=== PATIENT | female | born 1990 | race Caucasian/White ===

== ENCOUNTER 2024-10-07 14:53 | Emergency (ER) | payer OTHER, SELFPAY ==
[2024-10-07 14:58] VITALS: BP 130/84; PULSE 105; RESP 18; TEMP 36.6; O2SAT 100; BMI 25.7
--- NOTE | 2024-10-07 15:11 | ED.GENADULT ---
HPI - General Adult General Chief complaint: Extremity Pain/Injury, Lower Stated complaint: Left knee pain Time Seen by Provider: 10/07/24 15:10 Related Data Home Medications ?Medication ?Instructions ?Recorded ?Confirmed duloxetine 30 mg capsule,delayed 30 mg PO BID 10/07/24 10/07/24 release (Cymbalta) Allergies Allergy/AdvReac Type Severity Reaction Status Date / Time No Known Drug Allergies Allergy Verified 10/07/24 15:03 Exam Const: Vital Signs, click to edit/add: Vital Signs - 24 hr 10/07/24 14:58 Temperature 97.8 F Pulse Rate [Right Pulse Oximeter] 105 H Respiratory Rate 18 Blood Pressure [Ri t Upper Arm] 130/84 Pulse Oximetry 100 Oxygen Delivery Me thod Room Air Course Vital Signs Vital signs: Initial Vital Signs Temperature 97.8 F 10/07/24 14:58 Temperature Source Temporal Artery Scan 10/07/24 14:58 Pulse Rate 105 H 10/07/24 14:58 Pulse Rhythm Regular 10/07/24 14:58 Pulse Strength 3+ Normal 10/07/24 14:58 Respiratory Rate 18 10/07/24 14:58 Blood Pressure 130/84 10/07/24 14:58 Blood Pressure Mean 99 10/07/24 14:58 Blood Pressure Position Sitting 10/07/24 14:58 Pulse Oximetry 100 10/07/24 14:58 Oxygen Delivery Method Room Air 10/07/24 14:58 Vital Signs Temperature 97.8 F 10/07/24 14:58 Pulse Rate 105 H 10/07/24 14:58 Respiratory Rate 18 10/07/24 14:58 Blood Pressure 130/84 10/07/24 14:58 Pulse Oximetry 100 10/07/24 14:58 Oxygen Delivery Method Room Air 10/07/24 14:58 Temperature 97.8 F 10/07/24 14:58 Pulse Rate 105 H 10/07/24 14:58 Respiratory Rate 18 10/07/24 14:58 Blood Pressure 130/84 10/07/24 14:58 Pulse Oximetry 100 10/07/24 14:58 Oxygen Delivery Method Room Air 10/07/24 14:58 Discharge Plan Discharge Prescriptions: No Action duloxetine [Cymbalta] 30 mg capsule,delayed release(DR/EC) 30 mg PO BID
--- NOTE | 2024-10-07 15:17 | CRLHL7_ITS ---
For Patients: As a result of the Cures Act, medical imaging exams and procedure reports are released immediately into your electronic medical record. You may view this report before your referring provider. If you have questions, please contact your health care provider. Indication: LT knee pain x 1 year, no known injury Technique: Three views of the left knee. Comparison: None Findings/Impression: No acute fracture or malalignment. No appreciable knee joint effusion. No degenerative or inflammatory arthropathy. No suspicious osseous lesions. The soft tissues are unremarkable. Dictated by Roberto Carlos Lawson MD @ 10/07/2024 3:48:23 PM (Electronically Signed)
[2024-10-07] MEDS: KETOROLAC 30 MG/ML inj IM (15:33)
--- NOTE | 2024-10-07 15:36 | ED.GENADULT ---
HPI - General Adult General Date Seen: 10/07/24 Chief complaint: Extremity Pain/Injury, Lower Stated complaint: Left knee pain Time Seen by Provider: 10/07/24 15:10 History of Present Illness HPI narrative: Patient is a 34-year-old woman here for evaluation of her left knee. She says she has had pain in her knee for about a year but it has just been getting worse and worse. Today she was at [place] in the [employer] pool and had trouble getting out because her knee was painful. She has not had any swelling or redness, denies any injury recently, she says when she was maybe 15 or 16 she was kicked by a cow but that is the only thing she can recall that has ever happened to her knee. She is status post gastric bypass, does not take nonsteroidals. Occasionally takes Tylenol but generally does not take anything for her knee. Related Data Home Medications ?Medication ?Instructions ?Recorded ?Confirmed duloxetine 30 mg capsule,delayed 30 mg PO BID 10/07/24 10/07/24 release (Cymbalta) Previous Rx's ?Medication ?Instructions ?Recorded oxycodone 5 mg tablet 5 mg PO Q6H PRN pain #6 tabs 10/07/24 Allergies Allergy/AdvReac Type Severity Reaction Status Date / Time No Known Drug Allergies Allergy Verified 10/07/24 15:03 [facility] Social History service: No Exam Narrative: Exam Narrative: Vital signs reviewed. Mild tachycardia is noted. Extremities: The knees are both normal in appearance, I do not feel significant effusion bilaterally. No significant tenderness to palpation. Range of motion is limited by pain. She is able to extend too close to 180? but can flex only to about 110?. Const: Vital Signs, click to edit/add: Vital Signs - 24 hr 10/07/24 14:58 Temperature 97.8 F Pulse Rate [Right Pulse Oximeter] 105 H Respiratory Rate 18 Blood Pressure [Ri ght Upper Arm] 130/84 Pulse Oximetry 100 Oxygen Delivery Me thod Room Air Documenting provider has reviewed patient's vital signs: yes Course Course ED Course: I obtained x-rays of the left knee, by my review these are negative. Radiology read is also negative. Discussed with her that this does not rule out the possibility of soft tissue injury such as perhaps a more chronic meniscal tear. In the absence of any acute injury, I doubt this is ligamentous, but I did recommend her getting an MRI as an outpatient. She lives in [place], she will call her primary doctor on Wednesday to arrange. She request stronger pain medication as she cannot take nonsteroidals. I have given her oxycodone, 6 tablets. Recommend Tylenol 1000 mg 3 times daily, ice liberally. We gave her a knee immobilizer here as well to help symptomatically. Should be seen at any time for severe or worsening pain, increased swelling, redness fevers or other changes. Vital Signs Vital signs: Initial Vital Signs Temperature 97.8 F 10/07/24 14:58 Temperature Source Temporal Artery Scan 10/07/24 14:58 Pulse Rate 105 H 10/07/24 14:58 Pulse Rhythm Regular 10/07/24 14:58 Pulse Strength 3+ Normal 10/07/24 14:58 Respiratory Rate 18 10/07/24 14:58 Blood Pressure 130/84 10/07/24 14:58 Blood Pressure Mean 99 10/07/24 14:58 Blood Pressure Position Sitting 10/07/24 14:58 Pulse Oximetry 100 10/07/24 14:58 Oxygen Delivery Method Room Air 10/07/24 14:58 Vital Signs Temperature 97.8 F 10/07/24 14:58 Pulse Rate 105 H 10/07/24 14:58 Respiratory Rate 18 10/07/24 14:58 Blood Pressure 130/84 10/07/24 14:58 Pulse Oximetry 100 10/07/24 14:58 Oxygen Delivery Method Room Air 10/07/24 14:58 Temperature 97.8 F 10/07/24 14:58 Pulse Rate 105 H 10/07/24 14:58 Respiratory Rate 18 10/07/24 14:58 Blood Pressure 130/84 10/07/24 14:58 Pulse Oximetry 100 10/07/24 14:58 Oxygen Delivery Method Room Air 10/07/24 14:58 Medications Administered Medications: Discontinued Medications Generic Name Dose Route Start Last Admin Trade Name Freq PRN Reason Stop Dose Admin Ketorolac Tromethamine 30 mg 10/07/24 15:17 10/07/24 15:33 Ketorolac 30 Mg/Ml Inj IM 10/07/24 15:18 30 mg ONCE ONE Administration Medical Decision Making Imaging Data Left knee x-ray: Attestation: I have reviewed the pertinent imaging results. Radiologist's impression: [address] [address] Diagnostic Imaging Report Patient: Fernanda Turcios MR#: [id number] : 1990 Acct:[id number] Loc: ED Service Date: 10/07/[address]: Ordering Physician: Agnieszka Schmidt M.D. Date of Service: 10/07/24 Procedure(s): XR knee LT 3V Accession Number(s): [id number] cc: Agnieszka Schmidt M.D.~ For Patients: As a result of the Cures Act, medical imaging exams and procedure reports are released immediately into your electronic medical record. You may view this report before your referring provider. If you have questions, please contact your health care provider. Indication: LT knee pain x 1 year, no known injury Technique: Three views of the left knee. Comparison: None Findings/Impression: No acute fracture or malalignment. No appreciable knee joint effusion. No degenerative or inflammatory arthropathy. No suspicious osseous lesions. The soft tissues are unremarkable. Dictated by Roberto Carlos Lawson MD @ 10/07/2024 3:48:23 PM Discharge Plan Discharge Clinical Impression: Chronic pain of left knee Patient Disposition: Home, Self-Care Condition: Stable Instructions: Knee Pain (ED) Additional Instructions: Your x-rays today are negative. This does not rule out a problem with the soft tissue structures in the knee such as the meniscus or ligaments. I would recommend that you have an MRI, this should be arranged through your primary care doctor or an orthopedic doctor. In the meantime, use Tylenol 1000 mg 3 times daily and ice liberally. Knee immobilizer as needed for comfort. Oxycodone sparingly for severe uncontrolled pain. Prescriptions: New oxycodone 5 mg tablet 5 mg PO Q6H PRN (Reason: pain) Qty: 6 0RF No Action duloxetine [Cymbalta] 30 mg capsule,delayed release(DR/EC) 30 mg PO BID Stand Alone Forms: MyHealth Info Instructions
--- OUTSIDE RECORDS SUMMARY | 2024-10-07 16:15 | XMS_ITS | Encounter Summary ---
Author Organization [facility] Address [address] [place] [address] Care Team Providers Care Quality Assurance Monitor Body Name Role Phone Power Newsome M.D. Primary Care Provider [phone] Encounter Details Date Type Department Care Team (Late st Contact Info) Description 09/26/2024 Results Follow-Up Department of Family Medicine, [facility] in [place], [place] [address] [place] [place] [phone] Power Newsome M.D. [address] [place] [phone] [facility] Social History Tobacco Use Types Packs/Day Years Used Date Smoking Tobacco: Never Passive Smoke Exposure: Never Smokeless Tobacco: Never Alcohol Use Standard Drinks/Week Comments Yes 3 (1 standard drink = 0.6 oz pur e alcohol) socially [facility] Utilities Answer Date Recorded In the past 12 months has e electric, gas, oil, or water company threatened to shut off services in your home? No 08/21/2023 Humiliation, Afraid, Rape, and Kick questionnair e Answer Date Recorded Within the last year, have y ou been afraid of your partner or ex-partner? No 08/06/2022 Within the last year, have y ou been humiliated or emotionally abused in other ways by your partner or ex-partner? No Within the last year, have y ou been kicked, hit, slapped, or otherwise physically hurt by your partner or ex-partner? No 08/06/2022 Within the last year, have y ou been raped or forced to have any kind of sexual activity by your partner or ex-partner? No 08/06/2022 Social Connection and Isolat ion Panel [NHANES] Answer Date Recorded In a typical week, how many times do you talk on the phone with family, friends, or neighbors? More than three times a week 08/06/2022 How often do you get togethe r with friends or relatives? Patient declined 08/06/2022 How often do you attend chur or confucianism services? 1 to 4 times per year 08/06/2022 Do you belong to any clubs o r organizations such as rastafarian groups, unions, fraternal or athletic groups, or school groups? No 08/06/2022 How often do you attend meet ings of the clubs or organizations you belong to? Never 08/06/2022 Are you , , di vorced, , never , or living with a partner? 08/06/2022 AUDIT-C Answer Date Recorded Q1: How often do you have a drink containing alc ohol? Patient declined 08/06/2022 Q2: How many drinks containi ng alcohol do you have on a typical day when you are drinking? 3 or 4 08/06/2022 Q3: How often do you have si x or more drinks on one occasion? Less than monthly 08/06/2022 Overall Financial Resource Strain (CARDIA) Answe r Date Recorded How hard is it for you to pa y for the very basics like food, housing, medical care, and heating? Not very hard 08/06/2022 PHQ-2 Answer Date Recorded PHQ-2 Score 2 09/22/2024 [facility] - Occupational Stress Questionnaire Answer Date Recorded Do you feel stress - tense, restless, nervous, or anxious, or unable to sleep at night because your mind is troubled all the time - these days? Not at all 08/06/2022 Exercise Vital Sign Answer Date Recorde d On average, how many days pe r week do you engage in moderate to strenuous exercise (like a brisk walk)? 1 day 08/21/2023 On average, how many minutes do you engage in exercise at this level? 30 min 08/21/2023 Hunger Vital Sign Answer Date Recorded Within the past 12 months, y ou worried that your food would run out before you got the money to buy more. Never true 08/21/19 24 Within the past 12 months, t he food you bought just didn't last and you didn't have money to get more. Never true 08/21/2023 PRAPARE - Transportation Answer Date Re corded In the past 12 months, has l ack of transportation kept you from medical appointments or from getting medications? No 07/27 In the past 12 months, has l ack of transportation kept you from meetings, work, or from getting things needed for daily living? No 08/21/2023 Depression Answer Date Recor ded PHQ-9 Total Score (max 27) 5 09/22 Nutrition Answer Date Recorded On average, how many serving s of fruits and vegetables do you eat per day (serving size is equal to 1 cup or approximately the size of a tennis ball)? 0-2 08/21/2023 Dental Answer Date Recorded Dental: Regular Dentist Yes 07/15/20 Employment Answer Date Recorded Employment status Unemployed/not in e paid workforce and NOT seeking employment 08/21/2023 Housing Stability Answer Date Recorded What is your living situation today? I have a [facility] place to live 08/21/2023 Education Answer Date Recorded What is the highest level of school you have completed or the highest degree you have received? Some college, no degree 07/15/2021 Comments No Sex and Gender Information Value Date Recorded Sex Assigned at Female 06/09/2022 8:54 AM ENVIRONMENTAL ADVISER Legal Sex Female 9:13 PM ENVIRONMENTAL ADVISER Gender Identity Female 11/18/2020 8:48 AM CDT Sexual Orientation Straight 11/18/2020 8: 48 AM CDT documented as of this encounter Plan of Treatment Upcoming Encounters Date Type Department Care Team (Latest Contact Info) Description 12/19/2024 12:30 PM CDT Clinical Communication Virtual Review in [place], [place] [address] [place] [phone] 12/21/2024 10:00 AM CDT Comprehensive Visit Division of Plastic Surgery in [place], [place] [address] [place] [phone] Carlos Lopez B.M., B.Ch., Ph.D. [address] [place] [phone] documented as of this encounter Visit Diagnoses Not on filedocumented in this encounter Additional Health Concerns Assessment Noted Time PHQ-9 Depression Total Score: 5 09/22/19 25 9:06 AM ENVIRONMENTAL ADVISER documented as of this encounter Care Teams Quality Assurance Monitor Body Relationship Specialty Start Date End Date Power Newsome M.D. [address] [place] [phone] PCP - General 10/15/21 documented as of this encounter
--- OUTSIDE RECORDS SUMMARY | 2024-10-07 16:15 | XMS_ITS | Clinical Summary ---
Author Organization [facility] Address [address] [place] [id number] Care Team Providers Care Primary Therapist Name Role Phone Power Newsome MD Primary Care Provider [phone] Allergies Active Allergy Reactions Criticality Noted Date Comments Nsaids (Non-Steroidal Anti-Inflammatory Drug) Other - Describe In Comment Field 05/25/2024 Gastric bypass Medications acetaminophen (TYLENOL EXTRA STRGTH) 500 mg tablet Take 500 mg by mouth every 6 hours if needed. Active ondansetron (ZOFRAN ODT) 4 mg disintegrating tablet DISSOLVE 1 TABLET ON THE TONGUE EVERY 8 HOURS NEEDED FOR NAUSEA/VOMITING 07/31/19 23 Active vitamins-folic acid 1 mg ( RX) tablet Take 1 Tablet by mouth once daily. Active HYDROcodone-acetam inophen (5-325 mg/tablet)Indicati ons:Folliculitis Take 1 Tablet by mouth every 6 hours. Max acetaminophen dose: 4000 mg in 24 hrs. 15 Tablet 06/02/20 23 Active ondansetron (ZOFRAN) 4 mg tabletIndications: Nausea vomiting and diarrhea Take 1 Tablet (4 mg) by mouth every 8 hours if needed for Nausea/Vomiting. 5 Tablet 11/28/19 24 Active Active Problems Problem Noted Date Diagnosed Date Iron deficiency anemia 04/01/2022 Abnormal cervical Papanicolaou smear 02/05/2021 Overview (08/12/2022): 06/10 - ASCUS, HPV+ Colpo done () but no biopsies. No follow up post as recommended. 08/12 - cytology normal, no HPV done 02/05/21 - pap normal cytology, HPV negative Major depressive disorder, single episode, moder ate 02/05/2021 Overview (08/12/2022): Patient has associated this with Mirena, in remission since Mirena came out February 2021. Given a prescription for sertraline but did not feel comfortable taking. Hirsutism 09/27/2020 Overview (08/12/2022): 09/27/20 Patient reports prior US with cysts. Unable to find in outside records. Will obtain PCOS labs. Has IUD in place. 02/05/21 - has not yet had labs done. Reordered labs today. Once results obtained would consider OCP (on top of IUD) vs spirolactone (with BP monitoring) 02/14/21 - Rx spirolactone. Ordered nurse BP check and labs. Solitary pulmonary nodule 09/27/2020 Overview (08/12/2022): Seen on abdominal CT 06/14. Discussed rba of radiation exposure and patient wished to proceed with dedicated chest CT. Ordered 09/27/20. Non smoker. 02/05/21 - has not yet had done due to insurance. Discussed. 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 Problem 09/24/2019 Syncope 09/24/2019 Missed 09/17/2017 Overview (08/12/2022): Added automatically from request for surgery [id number] Added automatically from request for surgery [id number] Gastroesophageal reflux disease without esophagi tis 11/17/2016 Congestion of nasal sinus 10/12/2016 Cough 10/12/2016 Closed fracture of calcaneus 07/17/2015 Closed fracture of lumbar vertebra 07/17/2015 Morbid obesity 01/22/2015 Anemia 06/21/2013 Family History Medical History Relation Name Comments No Known Problems Daughter 1 No Known Problems Daughter 2 No Known Problems Daughter 3 No Known Problems Daughter 4 No Known Problems Father No Known Problems Mother No Known Problems Sister No Known Problems Son Relation Name Status Comments Daughter 1 Alive Daughter 2 Alive Daughter 3 Alive Daughter 4 Alive Father Alive Mother Alive Sister Alive Son Alive Social History Tobacco Use Types Packs/Day Years Used Date Smoking Tobacco: Never Passive Smoke Exposure: Never Smokeless Tobacco: Never Tobacco Cessation:Counseling Given: Yes Comments:Lifetime nonsmoker. Alcohol Use Standard Drinks/Week Comments Not Currently 0 (1 standard drink = 0.6 oz pur e alcohol) Interpersonal Safety Answer Date Record ed Are you being hit, kicked, p ushed or yelled at (see row info)? No 05/25/2024 Interpersonal Safety Abuse 12 - 18 Not on file 05/25/2024 Interpersonal Safety Ambulatory Vulnerability No t on file 05/25/2024 Comments No Sex and Gender Information Value Date Recorded Sex Assigned at Not on file Legal Sex Female 4:41 PM CDT Gender Identity Not on file Sexual Orientation Not on file Obstetrics History Para Term AB IAB SAB Ectopic Multiple Livin g Live Births 1 Date Outcome GA Total Labor Labor/2nd/3rd Weight Sex Type Anes PTL Cher A1 A5 Name Clin Last Filed Vital Signs Vital Sign Reading Time Taken Comments Blood Pressure 134/102 05/25/2024 5:29 PM CDT Pulse 92 05/25/2024 5:29 PM CDT Temperature 36.8 C (98.2 F) 05/25/2024 5:06 PM CDT Respiratory Rate 17 05/25/2024 5:06 PM CDT Oxygen Saturation 98% 05/25/2024 5:29 PM CDT Inhaled Oxygen Concentration - - Weight 74.4 kg (164 lb 1.6 oz) 05/25/2024 5:06 P M CDT Height 162.6 cm (5' 4) 05/25/2024 5:06 PM CDT Body Mass Index 28.17 05/25/2024 5:06 PM CDT Plan of Treatment Not on file Insurance [facility] Care Teams Primary Therapist Relationship Specialty Start Date End Date Power Newsome MD [address] [place] [phone] PCP - General Family Practice 06/02/23
--- OUTSIDE RECORDS SUMMARY | 2024-10-07 16:16 | XMS_ITS | Encounter Summary ---
Author Organization [facility] Address [address] [place] [address] Care Team Providers Care Pattern Cutter Name Role Phone Power Newsome M.D. Primary Care Provider Encounter Details Date Type Department Care Team (Latest Contact Info) Description 09/22/2024 10:36 AM CAR REFINISHER - 09/22/2024 11:59 PM [facility] Hospital Encounter Department of Laboratory Medicine and Pathology, [facility], in [address] [place] [phone] Power Newsome M.D. [address] [place] [address] Tremor Discharge Disposition: Home or Self Care Social History Tobacco Use Types Packs/Day Years Used Date Smoking Tobacco: Never Passive Smoke Exposure: Never Smokeless Tobacco: Never Alcohol Use Standard Drinks/Week Comments Yes 3 (1 standard drink = 0.6 oz pur e alcohol) socially [facility] Utilities Answer Date Recorded In the past 12 months has th e electric, gas, oil, or water [employer] threatened to shut off services in your [...] declined 08/06/2022 How often do you attend [facility] or anabaptism services? 1 to 4 times per year 08/06/2022 Do you belong to any clubs o r organizations such as oriental orthodox groups, unions, fraternal or athletic groups, or [...] Answer Date Recorded PHQ-2 Score 2 09/22/2024 [facility] of Occupat ional Health - Occupational Stress [...] Answer Date Recorded Employment status Unemployed/not in th e paid workforce and NOT seeking employment 08/21/2023 Housing Stability Answer Date Recorded What is your living situation today? I have a [facility] place to live 08/21/2023 Education Answer Date Recorded What is the highest level of school you have completed or the highest degree you have received? Some college, no degree 07/15/2021 Comments No Sex and Gender Information Value Date Recorded Sex Assigned at Female 06/09/2022 8:54 AM CAR REFINISHER Legal Sex Female 9:13 PM CAR REFINISHER Gender Identity Female 11/18/2020 8:48 AM CDT Sexual Orientation Straight 11/18/2020 8: 48 AM CDT documented as of this encounter Medications at Time of Discharge acetaminophen (TYLENOL) 500 mg capsule Take 2 capsules (1,000 mg total) by mouth every 6 (six) hours as needed for pain. 30 capsule 01/28/2023 loratadine (CLARITIN) 10 mg tablet Take 10 mg by mouth as needed for allergies. As needed for seasonal allergies LORazepam (Ativan) 0.5 mg tabletIndications :Anxiety Generalized Disorder Take 1 tablet (0.5 mg total) by mouth every 6 (six) hours as needed for anxiety. 20 tablet 09/22/2024 magnesium oxide (Mag-Ox) 400 mg (241.3 mg magnesium) tablet Take 1 tablet (400 mg total) by mouth daily before morning meal. 90 tablet 1 09/22/2024 multivitamin tablet Take 1 tablet by mouth daily. documented as of this encounter Plan of Treatment Upcoming Encounters Date Type Department Care Team (Latest Contact Info) Description 12/19/2024 12:30 PM CDT Clinical Communication Virtual Review in [address] [phone] 12/21/2024 10:00 AM CDT Comprehensive Visit Division of Plastic Surgery in [address] [phone] Carlos Lopez B.M., B.Ch., Ph.D. [address] [place] [phone] documented as of this encounter Procedures Procedure Name Priority Date/Time Associated Diagnosis Comments SPSMA RESULT Routine 09/22/2024 10:42 AM CAR REFINISHER THYROID FUNCTION CASCADE, S Routine 09/22/2024 10:42 AM CAR REFINISHER Tremor CBC WITH DIFFERENTIAL, B Routine 09/22/2024 10:42 AM CAR REFINISHER Tremor FERRITIN, S Routine 09/22/2024 10:42 AM CAR REFINISHER Tremor VITAMIN B12 ASSAY, S Routine 09/22/2024 10:42 AM CAR REFINISHER Tremor COMPREHENSIVE METABOLIC PANEL, S/P Routine 09/22/2024 10:42 AM CAR REFINISHER Tremor documented in this encounter Results * Morphology Eval (special smear) (09/22/2024 10:42 AM CAR REFINISHER) Pathologist [facility] Neutrophilic Segs and Bands 60 50 - 75 % 09/22/2024 1:23 PM CAR REFINISHER [facility] Lymphocytes 32 18 - 42 % 09/22/2024 1:23 PM CAR REFINISHER [facility] Monocytes 6 2 - 11 % 09/22/2024 1:23 PM CAR REFINISHER [facility] Eosinophils 2 1 - 3 % 09/22/2024 1:23 PM CAR REFINISHER DHPM Manual Absolute Neutrophil Count 3.12 1.56 - 6.45 x10(9)/L 09/22/2024 1:23 PM CAR REFINISHER [facility]PM Comment: ----ADDITIONAL INFORMATION---- The manual absolute neutrophil count is derived from a manual differential count and therefore is not exactly comparable to the automated absolute neutrophil count. Interpretation See Comment 1:23 PM CAR REFINISHER DHPM Comment: Macrocytic red blood cells are present: consider vitamin B12 or folate deficiency, liver disease, drug effect, etc. Reviewed by: Paulette 09/22/2024 1:23 PM CAR REFINISHER [facility] Blood 09/22/2024 10:4 2 AM CAR REFINISHER 09/22/2024 11:50 AM CAR REFINISHER us Power Newsome M.D. LAB BLOOD ADD-ON Final Resul t Performing Organization Address City/[facility]/ZIP Co de Phone Number [facility] [address] [place] [address], [facility] DHPM [facility] [address] [place] [address] * (ABNORMAL) Ferritin (09/22/2024 10:42 AM CAR REFINISHER) Pathologist [facility] Ferritin, S 319(H) 6 - 175 mcg/L 09/22/2024 3:42 PM CAR REFINISHER DTL Blood (Blood, Venous) 09/22/2024 10:42 AM CAR REFINISHER 09/22/2024 2:08 PM CAR REFINISHER us Power Newsome M.D. LAB BLOOD ADD-ON Final Resul t Performing Organization Address City/[facility]/ZIP Co de Phone Number [facility] [address] [place] [address], [facility] D[facility] [address] [place] [address] * (ABNORMAL) CBC with Differential, Blood (09/22/2024 10:42 AM CAR REFINISHER) [facility] Hemoglobin 11.7 11.6 - 15.0 g/dL 09/22/2024 12:16 PM CAR REFINISHER DTL Hematocrit 36.8 35.5 - 44.9 % 09/22/2024 1:23 PM CAR REFINISHER DTL Erythrocytes 3.37(L) 3.92 - 5.13 x10(12)/L 09/22/2024 1:23 PM CAR REFINISHER DTL MCV 109.2(H) 78.2 - 97.9 fL 09/22/2024 1:23 PM CAR REFINISHER DTL RBC Distrib Width 14.7 12.2 - 16.1 % 09/22/2024 12:16 PM CAR REFINISHER DTL Platelet Count 249 157 - 371 x10(9)/L 09/22/2024 12:16 PM CAR REFINISHER DTL Leukocytes 5.2 3.4 - 9.6 x10(9)/L 09/22/2024 12:16 PM CAR REFINISHER DTL Neutrophils See Comment 1.56 - 6.45 x10(9)/L 09/22/2024 1:23 PM CAR REFINISHER [facility] Comment:Auto-diff results no t valid. See manual differential. Blood (Blood, Venous) 09/22/2024 10:42 AM CAR REFINISHER 09/22/2024 11:50 AM CAR REFINISHER us Power Newsome M.D. LAB BLOOD ADD-ON Final Resul t [facility] [address] [place] [address], [facility] [address] [place] [address] [facility] [address] [place] [address] * Thyroid Function [place] (09/22/2024 10:42 AM CAR REFINISHER) [facility] TSH, Sensitive 2.2 0.3 - 4.2 mIU/L 09/22/2024 3:42 PM CAR REFINISHER DTL Blood (Blood, Venous) 09/22/2024 10:42 AM CAR REFINISHER 09/22/2024 2:08 PM CAR REFINISHER us Power Newsome M.D. LAB BLOOD ADD-ON Final Resul t Performing Organization Address [facility] de Phone Number [facility] [address] [place] [address], [facility] [address] [place] [address] * Vitamin B12 Assay (09/22/2024 10:42 AM CAR REFINISHER) Vitamin B12 Assay, S 328 180 - 914 ng/L 09/25/2024 10:44 AM CAR REFINISHER DTL Comment: ----ADDITIONAL INFORMATION---- In patients being evaluated for vitamin B12 deficiency who have intrinsic factor blocking antibodies (IFBA), false elevations of B12 may occur due to IFBA interference thus potentially obscuring a physiological deficiency of B12. If observed B12 concentrations are discordant with clinical presentation, measurement of methylmalonic acid (MMA) should be considered. Blood (Blood, Venous) 09/22/2024 10:42 AM CAR REFINISHER 09/22/2024 2:08 PM CAR REFINISHER us Power Newsome M.D. LAB BLOOD ADD-ON Final Resul t Performing Organization Address [facility] de Phone Number [facility] [address] [place] [address], [facility] [address] [place] [address] * (ABNORMAL) Comprehensive Metabolic Panel (09/22/2024 10:42 AM CAR REFINISHER) Potassium, S 3.8 3.6 - 5.2 mmol/L 09/22/2024 3:42 PM CAR REFINISHER DTL Sodium, S 140 135 - 145 mmol/L 09/22/2024 3:42 PM CAR REFINISHER DTL Chloride, S 103 98 - 107 mmol/L 09/22/2024 3:42 PM CAR REFINISHER DTL Bicarbonate, S 24 22 - 29 mmol/L 09/22/2024 3:42 PM CAR REFINISHER DTL Anion Gap 13 7 - 15 09/22/2024 3:42 PM CAR REFINISHER DTL BUN (Blood Urea Nitrogen), S 5(L) 6 - 21 mg/dL 09/22/2024 3:42 PM CAR REFINISHER DTL Creatinine 0.59 0.59 - 1.04 mg/dL 09/22/2024 3:42 PM CAR REFINISHER DTL Estimated GFR (eGFR) >90 >=60 mL/min/BS A 09/22/2024 3:42 PM CAR REFINISHER DTL Comment: Estimated GFR calculated using the 2020 CKD_EPI creatinine equation. Calcium, Total, S 9.1 8.6 - 10.0 mg/dL 09/22/2024 3:42 PM CAR REFINISHER DTL Glucose, S 89 70 - 140 mg/dL 09/22/2024 3:42 PM CAR REFINISHER DTL Protein, Total, S 6.8 6.3 - 7.9 g/dL 09/22/2024 3:42 PM CAR REFINISHER DTL Albumin, S 4.1 3.5 - 5.0 g/dL 09/22/2024 3:42 PM CAR REFINISHER DTL Aspartate Aminotransferase (AST), S 37 8 - 43 U/L 09/22/2024 3:42 PM CAR REFINISHER DTL Alkaline Phosphatase, S 71 35 - 104 U/L 09/22/2024 3:42 PM CAR REFINISHER DTL Alanine Aminotransferase (ALT), S 32 7 - 45 U/L 09/22/2024 3:42 PM CAR REFINISHER DTL Bilirubin, Total, S 0.6 0.0 - 1.2 mg/dL 09/22/2024 3:42 PM CAR REFINISHER DTL Blood (Blood, Venous) 09/22/2024 10:42 AM CAR REFINISHER 09/22/2024 2:08 PM CAR REFINISHER us Power Newsome M.D. LAB BLOOD ADD-ON Final Resul t [facility] [address] [place] [address], [place] DTL [facility] [address] [place] [address] documented in this encounter Visit Diagnoses Diagnosis Tremor documented in this encounter Additional Health Concerns Assessment Noted Time PHQ-9 Depression Total Score: 5 02/28/20 25 9:06 AM CAR REFINISHER documented as of this encounter Care Teams Pattern Cutter Relationship Specialty Start Date End Date Power Newsome M.D. [address] [place] [phone] PCP - General 10/15/21 documented as of this encounter
--- OUTSIDE RECORDS SUMMARY | 2024-10-07 16:16 | XMS_ITS | Encounter Summary ---
Author Organization [facility] Address [address] [place] [address] Care Team Providers Care Store Keeper Name Role Phone Power Newsome M.D. Primary Care Provider Encounter Details Date Type Department Care Team (Latest Contact Info) Description 09/26/2024 Results Follow-Up Department of Family Medicine, [facility] in [place], [place] [address] [place] [phone] Power Newsome M.D. [address] [place] [address] Comprehensive Metabolic Panel, Vitamin B12 Assay, Thyroid Function [place], Additional followed-up results: 3 Social History Tobacco Use Types Packs/Day Years Used Date Smoking Tobacco: Never Passive Smoke Exposure: Never Smokeless Tobacco: Never Alcohol Use Standard Drinks/Week Comments Yes 3 (1 standard drink = 0.6 oz pur e alcohol) socially [facility] Utilities Answer Date Recorded In the [...] How often do you attend chur or islam services? 1 to 4 times per year 08/06/2022 Do you belong to any clubs o r organizations such as uatsdin groups, unions, fraternal or athletic groups, or [...] Answer Date Recorded PHQ-2 Score 2 09/22/2024 [facility] of Occupat ional Health - Occupational Stress [...] your living situation today? [facility] 08/21/2023 Education Answer Date Recorded What is the highest level of school you have completed or the highest degree you have received? Some college, no degree 07/15/2021 Comments No Sex and Gender Information Value Date Recorded Sex Assigned at Female 06/09/2022 8:54 AM MANAGER STORAGE Legal Sex Female 9:13 PM MANAGER STORAGE Gender Identity Female 11/18/2020 8:48 AM CDT Sexual Orientation Straight 11/18/2020 8: 48 AM CDT documented as of this encounter Plan of Treatment Upcoming Encounters Date Type Department Care Team (Latest Contact Info) Description 12/19/2024 12:30 PM CDT Clinical Communication Virtual Review in [place] [address] [place] [address] 12/21/2024 10:00 AM CDT Comprehensive Visit Division of Plastic Surgery in [place], [place] [address] [place] [address] Carlos Lopez B.M., B.Ch., Ph.D. [address] [place] [phone] documented as of this encounter Visit Diagnoses Not on filedocumented in this encounter Additional Health Concerns Assessment Noted Time PHQ-9 Depression Total Score: 5 09/22/19 25 9:06 AM MANAGER STORAGE documented as of this encounter Care Teams Store Keeper Relationship Specialty Start Date End Date Power Newsome M.D. [address] [place] [phone] PCP - General 10/15/21 documented as of this encounter
--- OUTSIDE RECORDS SUMMARY | 2024-10-07 16:16 | XMS_ITS | Encounter Summary ---
Author Organization [facility] Address [address] [place] [address] Care Team Providers Care Technical Sales Associate Name Role Phone Andrés Newsome M.D. Primary Care Provider [phone] Reason for Referral * Outpatient (Routine) - Authorized Specialty Diagnoses / Procedures Referred By Calixto maurice Referred To Contact Neurology Diagnoses Tremor Andrés Newsome M.D. [address] [place] [address] Phone: tel: fax: [facility] Referral ID Status Reason Start Date Expiration Date V isits Requested Visits Authorized [id number] Authorized 10/05/2024 04/06/2026 1 1 * Outpatient (Routine) - Closed Specialty Diagnoses / Procedures Referred By Calixto maurice Referred To Contact Diagnoses Tremor Procedures EMG Andrés Newsome M.D. [address] [place] [address] Phone: tel: fax: [facility] Referral ID Status Reason Start Date Expiration Date Visits Re quested Visits Authorized [id number] Closed 09/22/2024 12/23/2025 1 1 TECHNICIAN TEACHER * Outpatient (Routine) - Authorized Specialty Diagnoses / Procedures Referred By Calixto maurice Referred To Contact Plastic Surgery Diagnoses Pannus Abdominal Andrés Newsome M.D. [address] [place] [address] Phone: tel: fax: [facility] Referral ID Status Reason Start Date Expiration Date V isits Requested Visits Authorized [id number] Authorized 09/22/2024 03/24/2026 1 1 TECHNICIAN TEACHER Reason for Visit * Reason Comments Follow-up Encounter Details Date Type Department Care Team (Late st Contact Info) Description 09/22/2024 9:30 AM NAIL TECHNICIAN TEACHER Office Visit Department of Family Medicine, [facility], in [address] [place] [phone] Andrés Newsome M.D. [address] [place] [phone] Depression Major Recurrent Moderate (HCC) (Primary Dx); Anxiety Generalized Disorder; Pannus Abdominal; Tremor; Macrocytosis Social History Tobacco Use Types Packs/Day Years Used Date Smoking Tobacco: Never Passive Smoke Exposure: Never Smokeless Tobacco: Never Tobacco Cessation:Counseling Given: Not Answered Alcohol Use Standard Drinks/Week Comments Yes 3 (1 standard drink = 0.6 oz pur e alcohol) socially [facility] Utilities Answer Date Recorded In the past 12 months has [facility] [employer], oil, or water vushaper threatened to shut off services in your [...] How often do you attend chur or hinduism services? 1 to 4 times per year 08/06/2022 Do you belong to any clubs o r organizations such as religion groups, unions, fraternal or athletic groups, or [...] Answer Date Recorded PHQ-2 Score 2 09/22/2024 [facility] - Occupational Stress [...] your living situation today? [facility] live 08/21/2023 Education Answer Date Recorded What is the highest level of school you have completed or the highest degree you have received? Some college, no degree 07/15/2021 Comments No Sex and Gender Information Value Date Recorded Sex Assigned at Female 06/09/2022 8:54 AM NAIL TECHNICIAN TEACHER Legal Sex Female 9:13 PM NAIL TECHNICIAN TEACHER Gender Identity Female 11/18/2020 8:48 AM CDT Sexual Orientation Straight 11/18/2020 8: 48 AM CDT documented as of this encounter Last Filed Vital Signs Vital Sign Reading Time Taken Comments Blood Pressure 128/82 09/22/2024 9:28 AM NAIL TECHNICIAN TEACHER avg of 3 Pulse 74 09/22/2024 9:28 AM NAIL TECHNICIAN TEACHER Temperature - - Respiratory Rate - - Oxygen Saturation - - Inhaled Oxygen Concentration - - Weight 70.7 kg (155 lb 13.8 oz) 09/22/2024 9:28 AM NAIL TECHNICIAN TEACHER Height 163.9 cm (5' 4.53) 09/22/2024 9:28 AM CS T Body Mass Index 26.32 09/22/2024 9:28 AM NAIL TECHNICIAN TEACHER documented in this encounter Progress Notes * Andrés Newsome M.D. - 09/22/2024 9:30 AM CST SUBJECTIVE CHIEF COMPLAINT / REASON FOR VISIT Patient comes in today for Follow-up. HISTORY OF PRESENT ILLNESS Fernanda Turcios is a 34 y.o. female with a history of anxiety and depression, GERD, anemia, and weight loss status post gastric surgery who presents to the clinic for the above complaint. 1. Follow-up/multiple issues. Patient comes to clinic today accompanied by her and childrenfor a follow-up visit. Reports that she has been off of her duloxetine which has caused some notable changes in her mood. However, she is getting back on the medication. She does still take lorazepamas needed, though it is relatively infrequent. 2. Tremor. Patient also notes that she has had some tremor mostly of the right upper arm that seemsto happen with activity. Some weakness reported. No numbness, weakness, tingling in other places. 3. Pannus. Patient also has removed a significant amount of weight currently with BMI of 26. She would like to see a plastic surgeon about having her excess skin removed. The following portions of the patient's history were reviewed and updated as appropriate: allergies, current medications, family history, medical history, social history, surgical history, and problem list. OBJECTIVE BP 128/82 (BP Location: Left arm, Patient Position: Sitting, Cuff Size: Regular) Comment: avg of 3 Pulse 74 Ht 163.9 cm Wt 70.7 kg LMP 09/14/2024 (Exact Date) BMI 26.32 kg/m?? PHYSICAL EXAMINATION Vitals reviewed. Constitutional General: She is not in acute distress. Appearance: She is well-developed. She is not diaphoretic. HENT Head: Normocephalic and atraumatic. Right Ear: External ear normal. Left Ear: External ear normal. Eyes General: Lids are normal. Right eye: No discharge. Left eye: No discharge. Conjunctiva/sclera: Conjunctivae normal. Pulmonary Effort: Pulmonary effort is normal. Skin General: Skin is warm and dry. Findings: No lesion or rash. Comments: Multiple tattoos noted throughout the body, there is notable excess skin of the pannus present Neurological General: No focal deficit present. Mental Status: She is alert and oriented to person, place, and time. Cranial Nerves: No cranial nerve deficit. Sensory: No sensory deficit. Motor: No weakness. Coordination: Coordination normal. Gait: Gait normal. Psychiatric Mood and Affect: Mood normal. Behavior: Behavior normal. Thought Content: Thought content normal. Judgment: Judgment normal. ASSESSMENT / PLAN #1 Depression Major Recurrent Moderate (HCC) #2 Anxiety Generalized Disorder Discussed with the patient my findings today. Agree with her getting back on the duloxetine. Lorazepam as needed. Had previously been on quetiapine, would have her continue with duloxetine and as needed lorazepam for now and quetiapine as needed. - LORazepam (Ativan) 0.5 mg tablet; Take 1 tablet (0.5 mg total) by mouth every 6 (six) hours as needed for anxiety., Starting Wed09/22/2024, Normal #3 Pannus Abdominal Certainly reasonable to have her see Plastic surgery about panniculectomy, consult placed. - Plastic Surgery - Panniculectomy consult (clinic); Future; Expected date: 09/22/2024 #4 Tremor EMG and additional blood work order or further evaluation. - EMG; Future; Expected date: 09/22/2024 - Comprehensive Metabolic Panel; Future; Expected date: 09/22/2024 - Vitamin B12 Assay; Future; Expected date: 09/22/2024 - Thyroid Function [facility]; Future; Expected date: 09/22/2024 - CBC with Differential, Blood; Future; Expected date: 09/22/2024 - Ferritin; Future; Expected date: 09/22/2024 - Neurology - ICS consult (clinic); Future; Expected date: 10/05/2024 #5 Macrocytosis Patient did have significant macrocytosis let initial blood work, recommend repeat testing with peripheral morphology. - CBC with Differential, Blood; Future; Expected date: 10/05/2024 - Morphology Eval (special smear); Future; Expected date: 10/05/2024 - Folate; Future; Expected date: 10/05/2024 Other orders - magnesium oxide (Mag-Ox) 400 mg (241.3 mg magnesium) tablet; Take 1 tablet (400 mg total) by mouth daily before morning meal., Starting Wed09/22/2024, Until 03/21/2025, Normal - Influenza Trivalent Vaccine (FLUZONE/FLUARIX)(6 months and older)(PF) PATIENT EDUCATION Ready to learn, no apparent learning barriers were identified; learning preferences include listening. Explained diagnosis and treatment plan; patient expressed understanding of the content. documented in this encounter Plan of Treatment Upcoming Encounters Date Type Department Care Team (Latest Contact Info) Description 12/19/2024 12:30 PM CDT Clinical Communication Virtual Review in [place], [place] [address] [place] [address] 12/21/2024 10:00 AM CDT Comprehensive Visit Division of Plastic Surgery in [address] [phone] Carlos Lopez B.M., B.Ch., Ph.D. [address] [place] [phone] Scheduled Orders Name Type Priority Associated Diagnoses Orde r Schedule CBC with Differential, Blood Lab Routine Macrocytosis Expected: 10/05/2024 (Approximate), Expires: 01/05/2026 Morphology Eval (special smear) Pathology and Cytology Routine Macrocytosis Expected: 10/05/2024, Expires: 01/05/2026 Folate Lab Routine Macrocytosis Expected: 10/05/2024, Expires: 01/05/2026 Scheduled Referrals Name Type Priority Associated Diagnoses Order Schedule Plastic Surgery - Panniculectomy consult (clinic) Outpatient Referral Routine Pannus Abdominal Expected: 09/22/2024, Expires: 12/20/2025 Neurology - ICS consult (clinic) Outpatient Referral Routine Tremor Expected: 10/05/2024, Expires: 01/05/2026 documented as of this encounter Results * EMG (09/25/2024 8:19 AM NAIL TECHNICIAN TEACHER) 09/25/2024 8:45 AM NAIL TECHNICIAN TEACHER Narrative [facility] - 09/25/2024 9:14 AM NAIL TECHNICIAN TEACHER Table formatting from the original result was not included. 25-Sep-2024 Electromyography Final Report Study Number: 1 EMG Director Of Campus Recreation: Carlos Schreiber. [phone] or [phone] Referred by: ANDRÉS NEWSOME (127 or [phone]) Referred for: Tremor; Weakness Referral Code: 034 RX: 001 SUMMARY: Prior to starting the procedure, the patient's identity was verified, pertinent available records were reviewed, the nature of the procedure was explained, the appropriate sites of the exam were confirmed directly with the patient, and a pre-procedure pause was performed for final verification of all of the above. Right upper limb nerve conduction studies were normal. Right upper limb needle electromyography was normal. There was tremulousness in the distal muscles, however, there was no abnormal spontaneous activity present in any muscles tested. CLINICAL INTERPRETATION: This is a normal study. There is no electrophysiologic evidence for a right cervical radiculopathy or mononeuropathy of the right upper limb. Odette Schreiber (127 or [phone])/SMB NERVE CONDUCTIONS Record Rep Normal Normal Distal Normal F-Wave F-Wave Temp Nerve Type Site Stim Side Amp Amp CV CV Lat Lat Lat Est ( C) Median Motor APB R 9.6 (> 4.0) 55 (> 48) 3.0 (< 4.5) 31.9 Ulnar Motor ADM R 10.5 (> 6.0) 68 (> 51) 2.3 (< 3.6) 32.5 Median Sensory Dig II R 43 (> 15.0) 57 (> 56) 2.9 (< 3.6) 32.3 Ulnar Sensory Dig V R 45 (> 10.0) 73 (> 54) 2.4 (< 3.1) 32.5 NEEDLE EMG Ins Spont MUP Recruitment Duration Amplitude Phases Muscle Side Act Fib Fasc Normal Activ Reduced Rapid Long Short High Low % Turns First dorsal interosseous R NL 0 0 NL Comment: Tremulousness Pronator teres R NL 0 0 NL Comment: Tremulousness Biceps brachii R NL 0 0 NL Deltoid R NL 0 0 NL Triceps brachii R NL 0 0 NL This interpretation has been electronically signed: Carlos Schreiber D.O. at 09/25/2024 9:11:15 AM NAIL TECHNICIAN TEACHER Procedure Note Carlos Schreiber D.O. - 09/25/2024 25-Sep-2024 Electromyography Final Report Study Number: 1 EMG Director Of Campus Recreation: Carlos Schreiber 127 or [phone] Referred by: ANDRÉS NEWSOME (127 or [phone]) Referred for: Tremor; Weakness Referral Code: 034 RX: 001 SUMMARY: Prior to starting the procedure, the patient's identity wasverified, pertinent available records were reviewed, the nature of theprocedure was explained, the appropriate sites of the exam were confirmeddirectly with the patient, and a pre-procedure pause was performed forfinal verification of all of the above. Right upper limb nerve conduction studies were normal. Right upper limb needle electromyography was normal. There wastremulousness in the distal muscles, however, there was no abnormalspontaneous activity present in any muscles tested. CLINICAL INTERPRETATION: This is a normal study. There is noelectrophysiologic evidence for a right cervical radiculopathy ormononeuropathy of the right upper limb. Odette Schreiber (127 or [phone])/SMB NERVE CONDUCTIONS Record Rep Normal Normal Distal Normal F-Wave F-Wave Temp Nerve Type Site Stim Side Amp Amp CV CV Lat Lat Lat Est ( C) Median Motor APB R 9.6 (> 4.0) 55 (> 48) 3.0 (< 4.5) 31.9 Ulnar Motor ADM R 10.5 (> 6.0) 68 (> 51) 2.3 (< 3.6) 32.5 Median Sensory Dig II R 43 (> 15.0) 57 (> 56) 2.9 (< 3.6) 32.3 Ulnar Sensory Dig V R 45 (> 10.0) 73 (> 54) 2.4 (< 3.1) 32.5 NEEDLE EMG Ins Spont MUP Recruitment Duration Amplitude Phases Muscle Side Act Fib Fasc Normal Activ Reduced Rapid Long Short High Low %Turns First dorsal interosseous R NL 0 0 NL Comment: Tremulousness Pronator teres R NL 0 0 NL Comment: Tremulousness Biceps brachii R NL 0 0 NL Deltoid R NL 0 0 NL Triceps brachii R NL 0 0 NL This interpretation has been electronically signed: Carlos Schreiber,D.O. at 09/25/2024 9:11:15 AM NAIL TECHNICIAN TEACHER Andrés Newsome M.D. NEUROLOGY ORDERABLES Edited Result - Final Performing Organization Address City/[facility]/ZIP Co de Phone Number EMG * (ABNORMAL) Ferritin (09/22/2024 10:42 AM NAIL TECHNICIAN TEACHER) Pathologist [facility] Ferritin, S 319(H) 6 - 175 mcg/L 09/22/2024 3:42 PM NAIL TECHNICIAN TEACHER DTL Blood (Blood, Venous) 09/22/2024 10:42 AM NAIL TECHNICIAN TEACHER 09/22/2024 2:08 PM NAIL TECHNICIAN TEACHER Andrés Newsome M.D. LAB BLOOD ADD-ON Final Resul t Performing Organization Address [facility] Co de Phone Number [facility] [address] [place] [address], [facility] DTL [facility] [address] [place] [address] * (ABNORMAL) CBC with Differential, Blood (09/22/2024 10:42 AM NAIL TECHNICIAN TEACHER) [facility] Hemoglobin 11.7 11.6 - 15.0 g/dL 09/22/2024 12:16 PM NAIL TECHNICIAN TEACHER DTL Hematocrit 36.8 35.5 - 44.9 % 09/22/2024 1:23 PM NAIL TECHNICIAN TEACHER DTL Erythrocytes 3.37(L) 3.92 - 5.13 x10(12)/L 09/22/2024 1:23 PM NAIL TECHNICIAN TEACHER DTL MCV 109.2(H) 78.2 - 97.9 fL 09/22/2024 1:23 PM NAIL TECHNICIAN TEACHER DTL RBC Distrib Width 14.7 12.2 - 16.1 % 09/22/2024 12:16 PM NAIL TECHNICIAN TEACHER DTL Platelet Count 249 157 - 371 x10(9)/L 09/22/2024 12:16 PM NAIL TECHNICIAN TEACHER DTL Leukocytes 5.2 3.4 - 9.6 x10(9)/L 09/22/2024 12:16 PM NAIL TECHNICIAN TEACHER DTL Neutrophils See Comment 1.56 - 6.45 x10(9)/L 09/22/2024 1:23 PM NAIL TECHNICIAN TEACHER [facility] Comment:Auto-diff results no t valid. See manual differential. Blood (Blood, Venous) 09/22/2024 10:42 AM NAIL TECHNICIAN TEACHER 09/22/2024 11:50 AM NAIL TECHNICIAN TEACHER Andrés Newsome M.D. LAB BLOOD ADD-ON Final Resul t Performing Organization Address City/[facility] Co de Phone Number [facility] [address] [place] [address], [facility] [address] [place] [address] * Thyroid Function [facility] (09/22/2024 10:42 AM NAIL TECHNICIAN TEACHER) [facility] TSH, Sensitive 2.2 0.3 - 4.2 mIU/L 09/22/2024 3:42 PM NAIL TECHNICIAN TEACHER DT Blood (Blood, Venous) 09/22/2024 10:42 AM NAIL TECHNICIAN TEACHER 09/22/2024 2:08 PM NAIL TECHNICIAN TEACHER Andrés Newsome M.D. LAB BLOOD ADD-ON Final Resul t Performing Organization Address [facility] de Phone Number [facility] [address] [place] [address], [place] [address] * Vitamin B12 Assay (09/22/2024 10:42 AM NAIL TECHNICIAN TEACHER) [facility] Vitamin B12 Assay, S 328 180 - 914 ng/L 09/25/2024 10:44 AM NAIL TECHNICIAN TEACHER DT Comment: ----ADDITIONAL INFORMATION---- In patients being evaluated for vitamin B12 deficiency who have intrinsic factor blocking antibodies (IFBA), false elevations of B12 may occur due to IFBA interference thus potentially obscuring a physiological deficiency of B12. If observed B12 concentrations are discordant with clinical presentation, measurement of methylmalonic acid (MMA) should be considered. Blood (Blood, Venous) 09/22/2024 10:42 AM NAIL TECHNICIAN TEACHER 09/22/2024 2:08 PM NAIL TECHNICIAN TEACHER us Andrés Newsome M.D. LAB BLOOD ADD-ON Final Resul t [facility] [address] [place] [address], [facility] DTL [facility] [address] [place] [address] * (ABNORMAL) Comprehensive Metabolic Panel (09/22/2024 10:42 AM NAIL TECHNICIAN TEACHER) [facility] Potassium, S 3.8 3.6 - 5.2 mmol/L 09/22/2024 3:42 PM NAIL TECHNICIAN TEACHER DTL Sodium, S 140 135 - 145 mmol/L 09/22/2024 3:42 PM NAIL TECHNICIAN TEACHER DTL Chloride, S 103 98 - 107 mmol/L 09/22/2024 3:42 PM NAIL TECHNICIAN TEACHER DTL Bicarbonate, S 24 22 - 29 mmol/L 09/22/2024 3:42 PM NAIL TECHNICIAN TEACHER DTL Anion Gap 13 7 - 15 09/22/2024 3:42 PM NAIL TECHNICIAN TEACHER DTL BUN (Blood Urea Nitrogen), S 5(L) 6 - 21 mg/dL 09/22/2024 3:42 PM NAIL TECHNICIAN TEACHER DTL Creatinine 0.59 0.59 - 1.04 mg/dL 09/22/2024 3:42 PM NAIL TECHNICIAN TEACHER DTL Estimated GFR (eGFR) >90 >=60 mL/min/BS A 09/22/2024 3:42 PM NAIL TECHNICIAN TEACHER DTL Comment: Estimated GFR calculated using the 2020 CKD_EPI creatinine equation. Calcium, Total, S 9.1 8.6 - 10.0 mg/dL 09/22/2024 3:42 PM NAIL TECHNICIAN TEACHER DTL Glucose, S 89 70 - 140 mg/dL 09/22/2024 3:42 PM NAIL TECHNICIAN TEACHER DTL Protein, Total, S 6.8 6.3 - 7.9 g/dL 09/22/2024 3:42 PM NAIL TECHNICIAN TEACHER DTL Albumin, S 4.1 3.5 - 5.0 g/dL 09/22/2024 3:42 PM NAIL TECHNICIAN TEACHER DTL Aspartate Aminotransferase (AST), S 37 8 - 43 U/L 09/22/2024 3:42 PM NAIL TECHNICIAN TEACHER DTL Alkaline Phosphatase, S 71 35 - 104 U/L 09/22/2024 3:42 PM NAIL TECHNICIAN TEACHER DTL Alanine Aminotransferase (ALT), S 32 7 - 45 U/L 09/22/2024 3:42 PM NAIL TECHNICIAN TEACHER DTL Bilirubin, Total, S 0.6 0.0 - 1.2 mg/dL 09/22/2024 3:42 PM NAIL TECHNICIAN TEACHER DTL Blood (Blood, Venous) 09/22/2024 10:42 AM NAIL TECHNICIAN TEACHER 09/22/2024 2:08 PM NAIL TECHNICIAN TEACHER us Andrés Newsome M.D. LAB BLOOD ADD-ON Final Resul t [facility] [address] [place] [address], [facility] [address] [place] [address] documented in this encounter Visit Diagnoses Diagnosis Depression Major Recurrent Moderate (HCC)- Primary Anxiety Generalized Disorder Pannus Abdominal Tremor Macrocytosis Tremor documented in this encounter Additional Health Concerns Assessment Noted Time PHQ-9 Depression Total Score: 5 09/22/19 25 9:06 AM NAIL TECHNICIAN TEACHER documented as of this encounter Care Teams Technical Sales Associate Relationship Specialty Start Date End Date Andrés Newsome M.D. [address] [place] [address] PCP - General 10/15/21 documented as of this encounter
--- OUTSIDE RECORDS SUMMARY | 2024-10-07 16:16 | XMS_ITS | Clinical Summary ---
Author Organization [facility] Address [address] [place] [address] Care Team Providers Care Licensed Mortgage Loan Officer Name Role Phone Andrés Newsome M.D. Primary Care Provider Source Comments Patient records contain information from all sites at [facility]. For routine questions regarding patient records, call [phone] during business hours, M-F 8:00 AM - 5:00 PM Central Time. Record requests for emergency care only can be directed to [phone] at any time.[facility] Allergies No known active allergies Medications * This document contains information received from the source organization and may not represent a complete record from that organization. multivitamin tablet Take 1 tablet by mouth daily. Active loratadine (CLARITIN) 10 mg tablet Take 10 mg by mouth as needed for allergies. As needed for seasonal allergies Active acetaminophen (TYLENOL) 500 mg capsule Take 2 capsules (1,000 mg total) by mouth every 6 (six) hours as needed for pain. 30 capsule 3 Active QUEtiapine (SEROquel) 25 mg tablet Take 1 tablet (25 mg total) by mouth at bedtime for 3 days, THEN 2 tablets (50 mg total) at bedtime. 63 tablet 3 3 Active DULoxetine (Cymbalta) [address] capsule Take 2 capsules (60 mg total) by mouth 2 (two) times a day. 120 capsule 3 4 Active LORazepam (Ativan) 0.5 mg tabletIndicatio ns:Anxiety Generalized Disorder Take 1 tablet (0.5 mg total) by mouth every 6 (six) hours as needed for anxiety. 20 tablet 5 Active magnesium oxide (Mag-Ox) 400 mg (241.3 mg magnesium) tablet Take 1 tablet (400 mg total) by mouth daily before morning meal. 90 tablet 1 5 03/21/20 25 Active hydrOXYzine (ATARAX) 25 mg tablet Take 1 tablet (25 mg total) by mouth every 6 (six) hours as needed for anxiety. 10 tablet 1 2 03/31/20 22 Discontinu ed(Therapy completed) ondansetron (ZOFRAN) 4 mg tablet Take 4 mg by mouth every 8 (eight) hours as needed. 4 09/22/19 25 Discontinu ed(Therapy completed) LORazepam (Ativan) 0.5 mg tabletIndicatio ns:Anxiety Generalized Disorder Take 1 tablet (0.5 mg total) by mouth every 6 (six) hours as needed for anxiety. 20 tablet 4 09/22/19 25 Discontinu ed(Reorder ) Active Problems Problem Noted Date Diagnosed Date Anxiety Generalized Disorder 02/11/2023 Overview (12/09/2023): 02/10/23: Struggling with anxiety post . Was on citalopram 20 mg, last week was increased to 30 mg. Not seeing a large impact yet. Having some issues with ruminating thoughts affecting sleep. 07/22/2023: Patient comes to clinic today after having significantly struggled for last few months or so. She reports that she had been doing pretty well on her current dose of citalopram 20 mg twice daily. However, patient reports her 's job had changed, so he is only home about 2 nights per week. She tells me that she is essentially single parenting 5 children, and that has been very anxiety provoking for her. Her is quite helpful, however, he has just not as much as he previously had been. She reports that the citalopram does not seem to be working very well anymore, she tells me it is like taking sugar pills she also. Reports only getting about 2-3 hours of sleep per night because of her anxiety. Previously had been on Zyprexa in addition to her citalopram up to 10 mg at nighttime. She did not find that the 10 mg dose was helpful enough, so she discontinued that about a month ago. She has no active thoughts of hurting herself or anyone else, however, her day-to-day has been really quite difficult to the point where she was unable to get out of bed to get her children to school, so they ended up with unexcused absences. 08/25/2023: Patient was seen over video visit today for follow-up of mood. Reports that she was having problems with the citalopram and so she would discontinued that previously. She had been prescribed desk venlafaxine. However, her insurance would not pay for it. Because of insurance issues we had jointly agreed on a trial of duloxetine. She did get started with that over the weekend but had severe headache, vomiting, and nausea. However, it has started to improve and she has had fewer side effects symptoms here today. She does not think there has been a large improvement of her mood. She does continue to take quetiapine at night which does seem to help with sleep overall. She does report that her mood is much better than her previous portal messages had indicated; her has secured a new job where he is home every night. He previously had been away from her at work for large stretches of time which had been stressful for her marriage as well as puts a lot of stress on her to take care of all of their children. 11/05/2023: Patient continues to have some difficulty with medication. She was previously doing well. However, more recently she is noting that the duloxetine is not lasting as long as it should. She is currently taking 60 mg twice per day. She has not noted any substantial side effects, however, it just does not seem to be working as well as it previously had been. This has been a common theme with a number of different medications that have worked well for a period of time but then either do not last long enough for stopped working well altogether. She has not had pharmacogenomic testing. She additionally has been taking the quetiapine which she also states has not been lasting nearly as long as it had been previously. She will take it and thinks that maybe she will get about 5 hours of restful sleep. 12/09/2023: Patient was seen today over video visit for follow-up. She reports that her anxiety has not been very good, however, she has not been able to take her medications. Typically will need to take her medications on a full stomach. However, she reports that she has had a respiratory illness then followed by a 2 week diarrheal illness. She has not taken any of her medications (with the exception of lorazepam intermittently) over last couple of weeks. PHQ-9 score today is 10, juventino 7 is 3. Reports that she has had some difficulty with regulating her appetite, sometimes she is s tarving and sometimes she does not want to eat at all. Reports that her sleep has generally not been good either, she will go to sleep around 2030 and often around 0130. She does try to nap during the day when she has these difficult nights of sleeping. Delivery Vaginal Normal Spontaneous 01/26/2023 Overview (01/26/2023): The patient was admitted to the [facility] for spontaneous onset of labor. Her was complicated by anemia, mood disorder, and hypoglycemic episodes. Her labor course was augmented with artificial rupture of membranes, utilizing epidural anesthesia for pain management. Complications of labor included nothing -- it was uncomplicated. She had a , delivering a liveborn female with weight of . Gestational age: 39w0d. occurred: 01/26/2023 1:24 PM Perineal lacerations or episiotomy: Intact Lacerations were repaired with: none -- no repair needed Contraceptive methods administered during the delivery: Bilateral tubal ligation completed Both mother and baby were in stable condition at the conclusion of the procedure. When the patient met appropriate criteria, she was transferred to the floor. She received her care at [facility]. Counseling Sterilization 01/26/2023 Care And Lactating 12/17/2022 Fatigue 08/10/2022 Anemia Iron Deficiency 04/01/2022 Need Vaccine Immunization Measles Mumps Rubella Varicella 01/21/2022 Overview (01/21/2022): Rubella non immune at OB work up, recommend Rubella booster. With Personal Hist ory Preeclampsia Previous 01/21/2022 Overview (01/21/2022): On third , diagnosed at 38+ weeks. Intolerant of aspirin (previous gastric bypass) so was not on for this . Anemia Complicating Third Trimester Overview (02/01/2022): 02/01/22 Hgb on admit to L&D 9.0 21 January 2022: ferritin at 5, Hgb at 8.8. Could consider Venofer infusion. See M consult from 19 January for further suggestions. Abnormal Pap Smear Cervix 02/05/2021 Overview (02/12/2021): 11/16 - ASCUS, HPV+ Colpo done () but no biopsies. No follow up post as recommended. 18 - cytology normal, no HPV done 02/05/21 - pap normal cytology, HPV negative Depression Major Recurrent Moderate 02/05/2021 Overview (12/09/2023): Patient has associated this with Mirena, in remission since Mirena came out February 2021. Given a prescription for sertraline but did not feel comfortable taking. 10/26/2023: Patient continues to have some depressive symptoms, though her PHQ-9 previously was 10 and now is 6. Currently on duloxetine 60 mg twice per day. 12/09/2023: Patient previously had been on duloxetine, however, she has not been taking due to recent gastrointestinal illness. Thinks that her mood had been better and appetite had been regulated better on duloxetine. However, she also states that she still has had some difficulty with her mood. Abnormal Pap Smear Cervix 02/05/2021 Overview (02/10/2023): 11/16 - ASCUS, HPV+ Colpo done () but no biopsies. No follow up post as recommended. 18 - cytology normal, no HPV done 02/05/21 - pap normal cytology, HPV negative Nodule Pulmonary 09/27/2020 Overview (02/05/2021): Seen on abdominal CT 06/14. Discussed rba of radiation exposure and patient wished to proceed with dedicated chest CT. Ordered 09/27/20. Non smoker. 02/05/21 - has not yet had done due to insurance. Discussed. Hirsutism 09/27/2020 Overview (02/14/2021): 09/27/20 Patient reports prior US with cysts. Unable to find in outside records. Will obtain PCOS labs. Has IUD in place. 02/05/21 - has not yet had labs done. Reordered labs today. Once results obtained would consider OCP (on top of IUD) vs spirolactone (with BP monitoring) 02/14/21 - Rx spirolactone. Ordered nurse BP check and labs. Nodule Pulmonary Solitary 09/27/2020 Overview (02/10/2023): Seen on abdominal CT 06/14. Discussed rba of radiation exposure and patient wished to proceed with dedicated chest CT. Ordered 09/27/20. Non smoker. 02/05/21 - has not yet had done due to insurance. Discussed. Bypass Gastric Dilan En Y Status Post 09/24/2019 Overview (01/21/2022): September 2019, outside [place], lost about 130 pounds. 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 Missed 09/17/2017 Overview (07/10/2022): Added automatically from request for surgery [id number] Missed 09/17/2017 Overview (02/10/2023): Added automatically from request for surgery [id number] Added automatically from request for surgery [id number] Gastroesophageal Reflux Disease Without Esophagi tis 11/17/2016 Other Specified Re lated Conditions Third Trimester 11/17/2016 Fracture Calcaneus Closed Initial Left 5 Fracture Vertebra Lumbar Closed Initial 07/17/20 15 Fracture Calcaneus Closed Initial 07/17/2015 Anemia 06/21/2013 Resolved Problems Problem Noted Date Diagnosed Date Resolved Date Delivery Vaginal Normal Spontaneous 01/30/2022 01/26/2023 Overview (01/31/2022): The patient was admitted to the [facility] for spontaneous onset of labor. Her was complicated by anemia, Bariatric surgery. Her labor course was augmented with IV pitocin, utilizing epidural anesthesia for pain management. Complications of labor included nothing -- it was uncomplicated. She had a , delivering a liveborn female with weight of 2.68 kg . Gestational age: 39w2d. occurred: 01/31/2022 2:39 AM Perineal lacerations or episiotomy: Intact Lacerations were repaired with: none -- no repair needed Contraceptive methods administered during the delivery: None Both mother and baby were in stable condition at the conclusion of the procedure. When the patient met appropriate criteria, she was transferred to the floor. The remainder of her course was uneventful. She received her care at [facility]. Care And Lactating 06/24/2021 01/26/2023 Overview (01/21/2022): IOL scheduled for 05 February 2022; primary OB provider will call for earlier openings. Intrauterine Device 09/27/2020 01/22/20 22 Overview (09/27/2020): Placed (not at [facility]) 04/13 Encounters Date Type Department Care Team Description 09/26/2024 Results Follow-Up Department of Family Medicine, [facility], in [place], [place] [address] [place] [phone] Andrés Newsome M.D. EMG 09/26/2024 Results Follow-Up Department of Family Medicine, [facility], in [place], [place] [address] [place] [phone] Andrés Newsome M.D. Comprehensive Metabolic Panel, Vitamin B12 Assay, Thyroid Function [place], Additional followed-up results: 3 09/25/2024 8:19 AM PICTURE COPYIST - 09/25/2024 11:59 PM PICTURE COPYIST Hospital Encounter Department of Neurology in [place], [place] [address] [place] [address] Andrés Newsome M.D. Tremor Discharge Disposition: Home or Self Care 09/22/2024 10:36 AM PICTURE COPYIST - 09/22/2024 11:59 PM PICTURE COPYIST Hospital Encounter Department of Laboratory Medicine and Pathology, [facility] in [place] [address] [place] [address] Andrés Newsome M.D. Tremor Discharge Disposition: Home or Self Care 09/22/2024 9:30 AM PICTURE COPYIST Office Visit Department of Family Medicine, [address] [place] [address] Andrés Newsome M.D. Depression Major Recurrent Moderate (HCC) (Primary Dx); Anxiety Generalized Disorder; Pannus Abdominal; Tremor; Macrocytosis from Last 3 Months Immunizations Immunization Administration Dates Next Due HepB, Unspecified 04/08/2000 Influenza, Unspecified 05/09/2013,2011,04/09/2011,2010,06/04/2009 MCV4 (Menactra)(Discontinued) 01/01/2011 MMR 02/02/2022 Tdap 11/20/2022,,11/17/2016,2012 JES 01/01/2011 influenza trivalent vaccine (6 months and older)(PF) 09/22/2024 influenza vaccine quad (FLUZONE/FLUARIX) (6 months and older)(PF) 07/10/2022,06/24/2021,09/27/2020,2018,05/24/2018 Family History Medical History Relation Name Comments No Known Problems Child 1 No Known Problems Child 2 No Known Problems Child 3 ADD Daughter [place] Coronary artery disease Father irma Depression Father irma Hypertension Father irma Obesity Father irma Psychiatric Father irma depression/anxi ety Sleep apnea Father irma Diabetes Maternal Grandfather No Known Problems Maternal Grandmother Depression Mother melani Diabetes type II Mother melani Hypertension Mother melani Obesity Mother melani Sleep apnea Mother melani Hypertension Paternal Grandmother Lung cancer Paternal Grandmother Smoker Paternal Grandmother Depression Sister Gastric bypass Sister Obesity Sister Prediabetes Sister Psychiatric Sister Sleep apnea Sister Relation Name Status Comments Child 1 Alive Child 2 Alive Child 3 Alive Daughter alona Father irma Alive Maternal Grandfather Maternal Grandmother Alive Mother melani Alive Paternal Grandfather Paternal Grandmother Sister Alive Social History Tobacco Use Types Packs/Day Years Used Date Smoking Tobacco: Never Passive Smoke Exposure: Never Smokeless Tobacco: Never Tobacco Cessation:Counseling Given: Not Answered Alcohol Use Standard Drinks/Week Comments Yes 3 (1 standard drink = 0.6 oz pur e alcohol) socially [facility] Utilities Answer Date Recorded In the past 12 months has e [employer], gas, oil, or water [employer] threatened to shut off services in your [...] declined 08/06/2022 How often do you attend [facility] or hinduism services? 1 to 4 times per year 08/06/2022 Do you belong to any clubs o r organizations such as confucianist groups, unions, fraternal or athletic groups, or [...] Answer Date Recorded PHQ-2 Score 2 09/22/2024 [facility] - Occupational Stress Questionnaire Answer Date Recorded [...] your living situation today? I have a [facility] place to live 08/21/2023 Education Answer Date Recorded What is the highest level of school you have completed or the highest degree you have received? Some college, no degree 07/15/2021 Comments No Sex and Gender Information Value Date Recorded Sex Assigned at Female 06/09/2022 8:54 AM PICTURE COPYIST Legal Sex Female 9:13 PM PICTURE COPYIST Gender Identity Female 11/18/2020 8:48 AM CDT Sexual Orientation Straight 11/18/2020 8: 48 AM CDT Last Filed Vital Signs Vital Sign Reading Time Taken Comments Blood Pressure 128/82 09/22/2024 9:28 AM PICTURE COPYIST avg of 3 Pulse 74 09/22/2024 9:28 AM PICTURE COPYIST Temperature 36.8 C (98.2 F) 01/29/2023 8:30 AM CDT Respiratory Rate 16 01/29/2023 8:30 AM CDT Oxygen Saturation 97% 01/29/2023 8:30 AM CDT Inhaled Oxygen Concentration - - Weight 70.7 kg (155 lb 13.8 oz) 09/22/2024 9:28 AM PICTURE COPYIST Height 163.9 cm (5' 4.53) 09/22/2024 9:28 AM CS T Body Mass Index 26.32 09/22/2024 9:28 AM PICTURE COPYIST Plan of Treatment Upcoming Encounters Date Type Department Care Team (Latest Contact Info) Description 12/19/2024 12:30 PM CDT Clinical Communication Virtual Review in [place], [place] [address] [place] [address] 12/21/2024 10:00 AM CDT Comprehensive Visit Division of Plastic Surgery in [place], [place] [address] [place] [address] Carlos Lopez B.M., B.Ch., Ph.D. [address] [place] [address] Health Maintenance Due Date Last Done Comments Hepatitis B Vaccines (2 of 3 - 3-dose series) 05/06/2000 04/08/2000 Varicella Vaccines (2 of 2 - 13+ 2-dose series) 01/29/2011 01/01/2011 Cervical/Vaginal Cancer Screening 02/06/2024 02/05/2021 COVID-19 Vaccine (1 - 2023- season) 2024 Depression Monitoring (PHQ-9) 01/20/2025 09/22/2024 DTaP,Tdap,and Td Vaccines (5 - Td or Tdap) 11/20/2032 11/20/2022, 11/25/2021, 11/17/2016, Additional history exists HIV Screening Completed 06/08/2022, 06/24/2021 Hepatitis C Screening Completed 06/08/2022, 021 Depression Monitoring (PHQ-9 for quality tracking) Completed 09/22/2024 Glucose Test for Med Monitoring Discontinued 09/22/2024, 11/27/2023, 10/08/2022, Additional history exists Influenza Vaccine Completed 09/22/2024, , 06/24/2021, Additional history exists HPV Vaccines Aged Out No longer eligi ble based on patient's age to complete this topic IPV Vaccines Aged Out No longer eligi ble based on patient's age to complete this topic Pneumococcal vaccine (0-49 years) Aged Out No longer eligible based on patient's age to complete this topic Procedures Procedure Name Priority Date/Time Associated Diagnosis Comments EMG Routine 09/25/2024 8:19 AM PICTURE COPYIST Tremor SPSMA RESULT Routine 09/22/2024 10:42 AM PICTURE COPYIST FERRITIN, S Routine 09/22/2024 10:42 AM PICTURE COPYIST Tremor CBC WITH DIFFERENTIAL, B Routine 09/22/2024 10:42 AM PICTURE COPYIST Tremor THYROID FUNCTION CASCADE, S Routine 09/22/2024 10:42 AM PICTURE COPYIST Tremor VITAMIN B12 ASSAY, S Routine 09/22/2024 10:42 AM PICTURE COPYIST Tremor COMPREHENSIVE METABOLIC PANEL, S/P Routine 09/22/2024 10:42 AM PICTURE COPYIST Tremor HCV AB SCRN , S Routine 06/08/2022 2:35 PM PICTURE COPYIST Examination Other Normal Third Trimester (HCC) HIV-1/-2 AG AND AB SCRN, PLASMA Routine 06/08/2022 2:35 PM PICTURE COPYIST Examination Other Normal Third Trimester (HCC) THINPREP SCREEN HPV REFLEX Routine 02/05/2021 1:49 PM CDT Pap Smear Examination from Last 3 Months or Most Recently Relevant to Health Maintenance Results * EMG (09/25/2024 8:19 AM PICTURE COPYIST) 09/25/2024 8:45 AM PICTURE COPYIST Narrative [facility] EMG - 09/25/2024 9:14 AM PICTURE COPYIST Table formatting from the original result was not included. 25-Sep-2024 Electromyography Final Report Study Number: 1 EMG Olive Pitter: Carlos Schreiber 127 or [phone] Referred by: ANDRÉS NEWSOME (127 or [phone]) Referred for: Tremor; Weakness Referral Code: 034 [...] right upper limb. Odette Schreiber (127 or [phone])/SMB NERVE CONDUCTIONS Record Rep Normal Normal Distal [...] Carlos Schreiber D.O. at 09/25/2024 9:11:15 AM PICTURE COPYIST Procedure Note Carlos Schreiber D.O. - 09/25/2024 25-Sep-2024 Electromyography Final Report Study Number: 1 EMG Olive Pitter: Carlos Schreiber. 127 or [phone] Referred by: ANDRÉS NEWSOME (127 or [phone]) Referred for: Tremor; Weakness Referral Code: 034 [...] right upper limb. Odette Schreiber (127 or [phone])/SMB NERVE CONDUCTIONS Record Rep Normal Normal Distal [...] This interpretation has been electronically signed: Carlos Schreiber,[email or web address] at 09/25/2024 9:11:15 AM PICTURE COPYIST us Andrés Newsome M.D. NEUROLOGY ORDERABLES Edited Result - Final EMG * Morphology Eval (special smear) (09/22/2024 10:42 AM PICTURE COPYIST) Neutrophilic Segs and Bands 60 50 - 75 % 09/22/2024 1:23 PM PICTURE COPYIST DHPM Lymphocytes 32 18 - 42 % 09/22/2024 1:23 PM PICTURE COPYIST DHPM Monocytes 6 2 - 11 % 09/22/2024 1:23 PM PICTURE COPYIST DHPM Eosinophils 2 1 - 3 % 09/22/2024 1:23 PM PICTURE COPYIST DHPM Manual Absolute Neutrophil Count 3.12 1.56 - 6.45 x10(9)/L 09/22/2024 1:23 PM PICTURE COPYIST DHPM Comment: ----ADDITIONAL INFORMATION---- The manual absolute neutrophil count is derived from a manual differential count and therefore is not exactly comparable to the automated absolute neutrophil count. Interpretation See Comment 1:23 PM PICTURE COPYIST DHPM Comment: Macrocytic red blood cells are present: consider vitamin B12 or folate deficiency, liver disease, drug effect, etc. Reviewed by: Paulette 09/22/2024 1:23 PM PICTURE COPYIST DHPM Blood 09/22/2024 10:4 2 AM PICTURE COPYIST 09/22/2024 11:50 AM PICTURE COPYIST us Andrés Newsome M.D. LAB BLOOD ADD-ON Final Resul t Performing Organization Address City/[facility]/ZIP Co de Phone Number [address] [place] [address] * Thyroid Function [place] (09/22/2024 10:42 AM PICTURE COPYIST) Pathologist [facility] TSH, Sensitive 2.2 0.3 - 4.2 mIU/L 09/22/2024 3:42 PM PICTURE COPYIST DTL Blood (Blood, Venous) 09/22/2024 10:42 AM PICTURE COPYIST 09/22/2024 2:08 PM PICTURE COPYIST us Andrés Newsome M.D. LAB BLOOD ADD-ON Final Resul t Performing Organization Address City/[facility] Co de Phone Number [facility] [address] [place] [address] * (ABNORMAL) CBC with Differential, Blood (09/22/2024 10:42 AM PICTURE COPYIST) Pathologist [facility] Hemoglobin 11.7 11.6 - 15.0 g/dL 09/22/2024 12:16 PM PICTURE COPYIST DTL Hematocrit 36.8 35.5 - 44.9 % 09/22/2024 1:23 PM PICTURE COPYIST DTL Erythrocytes 3.37(L) 3.92 - 5.13 x10(12)/L 09/22/2024 1:23 PM PICTURE COPYIST DTL MCV 109.2(H) 78.2 - 97.9 fL 09/22/2024 1:23 PM PICTURE COPYIST DTL RBC Distrib Width 14.7 12.2 - 16.1 % 09/22/2024 12:16 PM PICTURE COPYIST DTL Platelet Count 249 157 - 371 x10(9)/L 09/22/2024 12:16 PM PICTURE COPYIST DTL Leukocytes 5.2 3.4 - 9.6 x10(9)/L 09/22/2024 12:16 PM PICTURE COPYIST DTL Neutrophils See Comment 1.56 - 6.45 x10(9)/L 09/22/2024 1:23 PM PICTURE COPYIST [facility] Comment:Auto-diff results no t valid. See manual differential. Blood (Blood, Venous) 09/22/2024 10:42 AM PICTURE COPYIST 09/22/2024 11:50 AM PICTURE COPYIST us Andrés Newsome M.D. LAB BLOOD ADD-ON Final Resul t Performing Organization Address City/[facility]/ZIP Co de Phone Number [facility] [address] [place] [address], [facility] DTL [facility] [address] [place] [address] * (ABNORMAL) Ferritin (09/22/2024 10:42 AM PICTURE COPYIST) Ferritin, S 319(H) 6 - 175 mcg/L 09/22/2024 3:42 PM PICTURE COPYIST DTL Blood (Blood, Venous) 09/22/2024 10:42 AM PICTURE COPYIST 09/22/2024 2:08 PM PICTURE COPYIST us Andrés Newsome M.D. LAB BLOOD ADD-ON Final Resul t Performing Organization Address City/[facility]/ZIP Co de Phone Number [facility] [address] [place] [address], [facility] DTL [facility] [address] [place] [address] * Vitamin B12 Assay (09/22/2024 10:42 AM PICTURE COPYIST) Vitamin B12 Assay, S 328 180 - 914 ng/L 09/25/2024 10:44 AM PICTURE COPYIST DTL Comment: ----ADDITIONAL INFORMATION---- In patients being evaluated for vitamin B12 deficiency who have intrinsic factor blocking antibodies (IFBA), false elevations of B12 may occur due to IFBA interference thus potentially obscuring a physiological deficiency of B12. If observed B12 concentrations are discordant with clinical presentation, measurement of methylmalonic acid (MMA) should be considered. Blood (Blood, Venous) 09/22/2024 10:42 AM PICTURE COPYIST 09/22/2024 2:08 PM PICTURE COPYIST us Andrés Newsome M.D. LAB BLOOD ADD-ON Final Resul t [place] [address] [place] [address], [facility] [address] [place] [address] * (ABNORMAL) Comprehensive Metabolic Panel (09/22/2024 10:42 AM PICTURE COPYIST) Pathologist [facility] Potassium, S 3.8 3.6 - 5.2 mmol/L 09/22/2024 3:42 PM PICTURE COPYIST DTL Sodium, S 140 135 - 145 mmol/L 09/22/2024 3:42 PM PICTURE COPYIST DTL Chloride, S 103 98 - 107 mmol/L 09/22/2024 3:42 PM PICTURE COPYIST DTL Bicarbonate, S 24 22 - 29 mmol/L 09/22/2024 3:42 PM PICTURE COPYIST DTL Anion Gap 13 7 - 15 09/22/2024 3:42 PM PICTURE COPYIST DTL BUN (Blood Urea Nitrogen), S 5(L) 6 - 21 mg/dL 09/22/2024 3:42 PM PICTURE COPYIST DTL Creatinine 0.59 0.59 - 1.04 mg/dL 09/22/2024 3:42 PM PICTURE COPYIST DTL Estimated GFR (eGFR) >90 >=60 mL/min/BS A 09/22/2024 3:42 PM PICTURE COPYIST DTL Comment: Estimated GFR calculated using the 2020 CKD_EPI creatinine equation. Calcium, Total, S 9.1 8.6 - 10.0 mg/dL 09/22/2024 3:42 PM PICTURE COPYIST DTL Glucose, S 89 70 - 140 mg/dL 09/22/2024 3:42 PM PICTURE COPYIST DTL Protein, Total, S 6.8 6.3 - 7.9 g/dL 09/22/2024 3:42 PM PICTURE COPYIST DTL Albumin, S 4.1 3.5 - 5.0 g/dL 09/22/2024 3:42 PM PICTURE COPYIST DTL Aspartate Aminotransferase (AST), S 37 8 - 43 U/L 09/22/2024 3:42 PM PICTURE COPYIST DTL Alkaline Phosphatase, S 71 35 - 104 U/L 09/22/2024 3:42 PM PICTURE COPYIST DTL Alanine Aminotransferase (ALT), S 32 7 - 45 U/L 09/22/2024 3:42 PM PICTURE COPYIST DTL Bilirubin, Total, S 0.6 0.0 - 1.2 mg/dL 09/22/2024 3:42 PM PICTURE COPYIST DTL Blood (Blood, Venous) 09/22/2024 10:42 AM PICTURE COPYIST 09/22/2024 2:08 PM PICTURE COPYIST us Andrés Newsome M.D. LAB BLOOD ADD-ON Final Resul t [address] [address], [facility] [address] [address] * Hepatitis C Virus Antibody Screen (06/08/2022 2:35 PM PICTURE COPYIST) HCV Ab Scrn , S Negative Negative 06/09/2022 8:04 AM PICTURE COPYIST [facility] Comment:Izqzyv-id-ghodni rat io is <1.00. Blood (Blood, Venous) 06/08/2022 2:35 PM PICTURE COPYIST 06/09/2022 6:43 AM PICTURE COPYIST us Andrés Newsome M.D. LAB MICROBIOLOGY - BLOOD ORD ERABLES Final Result [facility] [address] [place] [address] [facility] [address] [place] [address] * HIV-1/-2 Ag and Ab Scrn, Plasma (06/08/2022 2:35 PM PICTURE COPYIST) Pathologist [facility] HIV-1/-2 Ag and Ab Scrn, P Negative Negative 06/09/2022 8:09 AM PICTURE COPYIST [facility] Comment: Negative result does not rule out HIV infection. If exposure to HIV infection occurred <14 days ago, contact the laboratory to request addition of HIV-1 RNA detection / quantification test (HIVQN). Blood (Blood, Venous) 06/08/2022 2:35 PM PICTURE COPYIST 06/09/2022 6:43 AM PICTURE COPYIST us Andrés Newsome M.D. LAB MICROBIOLOGY - BLOOD ORD ERABLES Final Result [facility] [address] [place] [address] [place] [id number] [place] [address] * ThinPrep Screen HPV Reflex (02/05/2021 1:49 PM CDT) Pathologist [facility] 02/11/2021 10:16 AM CDT DTL Report electronically signed by BRADLEY Montgomery (ASCP) I verify that I have examined all relevant slides/materials for the specimen(s) and rendered or confirmed the diagnosis. 02/11/2021 10:16 AM CDT DTL Gross Description Received specimen in a ThinPrep vial. 02/11/2021 10:16 AM CDT DTL Pap Test Source Cervical/Endocervi mary 02/11/2021 10:16 AM CDT DTL Clinical History Previous abn pap within past 5 years 02/11/2021 10:16 AM CDT DTL Menstrual Status(LMP, PM, ) Date of last pap 07/26/17 02/11/2021 10:16 AM CDT DTL Hormone Therapy/Contracep tives None/Not known 02/11/2021 10:16 AM CDT DTL Interpretation Cervical/Endocervi mary (ThinPrep): Satisfactory for Evaluation Negative for Intraepithelial Lesion or Malignancy 02/11/2021 10:16 AM CDT DTL Varies (Cervix/Endocerv ix) 02/05/2021 1:49 PM CDT 02/05/2021 6:14 PM CDT us Ade Patton M.D. LAB PAP PATHDX EDU RAMIREZ Final Result [facility] [address] [place] [address], [facility] DTL [facility] [address] [place] [address] from Last 3 Months or Most Recently Relevant to Health Maintenance [place] [facility] [place] [address] [address] [id number] Advance Directives For more information, please contact: [phone] * Full Code (Latest Code Status on File) Date Activated Date Inactivated Comments 01/26/2023 8:29 PM 01/29/2023 4:24 PM Question Answer Comments Full Code: Not Discussed Due to: Not medically appropriate Care Teams Licensed Mortgage Loan Officer Relationship Specialty Start Date End Date Andrés Newsome M.D. [address] [place] [address] PCP - General 10/15/21
--- OUTSIDE RECORDS SUMMARY | 2024-10-07 16:16 | XMS_ITS | Encounter Summary ---
Author Organization [facility] Address [address] [place] [address] Care Team Providers Care Cnc Machine Setter Name Role Phone Andrés Newsome M.D. Primary Care Provider [phone] Reason for Referral * Outpatient (Routine) - Closed Specialty Diagnoses / Procedures Referred By Calixto maurice Referred To Contact Diagnoses Tremor Procedures [facility] Andrés Newsome M.D. [address] [place] [address] Phone: tel: fax: [facility] Referral ID Status Reason Start Date Expiration Date Visits Re quested Visits Authorized [id number] Closed 09/22/2024 12/23/2025 1 1 RESEARCH AND STRATEGIC ANALYSIS Reason for Visit * Outpatient (Routine) - Closed Specialty Diagnoses / Procedures Referred By Calixto maurice Referred To Contact Diagnoses Tremor Procedures [facility] Andrés Newsome M.D. [address] [place] [address] Phone: tel: fax: [facility] Referral ID Status Reason Start Date Expiration Date Visits Re quested Visits Authorized [id number] Closed 09/22/2024 12/23/2025 1 1 Encounter Details Date Type Department Care Team (Latest Contact Info) Description 09/25/2024 8:19 AM SVP RESEARCH AND STRATEGIC ANALYSIS - 09/25/2024 11:59 PM SVP RESEARCH AND STRATEGIC ANALYSIS Hospital Encounter Department of Neurology in [place], [place] [address] [place] [address] Andrés Newsome M.D. [address] [place] [address] Tremor Discharge Disposition: Home or Self Care Social History Tobacco Use Types Packs/Day Years Used Date Smoking Tobacco: Never Passive Smoke Exposure: Never Smokeless Tobacco: Never Alcohol Use Standard Drinks/Week Comments Yes 3 (1 standard drink = 0.6 oz pur e alcohol) socially [facility] Utilities Answer Date Recorded In the [...] How often do you attend chur or yarsani services? 1 to 4 times per year 08/06/2022 Do you belong to any clubs o r organizations such as congregational groups, unions, fraternal or athletic groups, or [...] Answer Date Recorded PHQ-2 Score 2 09/22/2024 [facility] - Occupational Stress Questionnaire Answer Date [...] your living situation today? [facility] 08/21/2023 Education Answer Date Recorded What is the highest level of school you have completed or the highest degree you have received? Some college, no degree 07/15/2021 Comments No Sex and Gender Information Value Date Recorded Sex Assigned at Female 06/09/2022 8:54 AM SVP RESEARCH AND STRATEGIC ANALYSIS Legal Sex Female 9:13 PM SVP RESEARCH AND STRATEGIC ANALYSIS Gender Identity Female 11/18/2020 8:48 AM CDT [...] PM CDT Clinical Communication Virtual Review in [place], [place] [address] [place] [address] 12/21/2024 10:00 AM CDT Comprehensive Visit Division of Plastic Surgery in [place], [place] [address] [place] [phone] Carlos Lopez B.M., B.Ch., Ph.D. [address] [place] [phone] documented as of this encounter Procedures Procedure Name Priority Date/Time Associated Diagnosis Comments EMG Routine 09/25/2024 8:19 AM SVP RESEARCH AND STRATEGIC ANALYSIS Tremor documented in this encounter Results * EMG (09/25/2024 8:19 AM SVP RESEARCH AND STRATEGIC ANALYSIS) 09/25/2024 8:45 AM SVP RESEARCH AND STRATEGIC ANALYSIS Narrative EMG - 09/25/2024 9:14 AM SVP RESEARCH AND STRATEGIC ANALYSIS Table formatting from the original result was not included. 25-Sep-2024 Electromyography Final Report Study Number: 1 EMG Information Assoc: Carlos Schreiber 127 or [phone] Referred by: ANDRÉS NEWSOME (127 or [phone]) Referred for: Tremor; Weakness Referral Code: 034 [...] right upper limb. Odette Schreiber (127 or [phone])/SMB NERVE CONDUCTIONS Record Rep Normal Normal Distal [...] Carlos Schreiber D.O. at 09/25/2024 9:11:15 AM SVP RESEARCH AND STRATEGIC ANALYSIS Procedure Note Carlos Schreiber D.O. - 09/25/2024 25-Sep-2024 Electromyography Final Report Study Number: 1 EMG Information Assoc: Carlos Schreiber 127 or [phone] Referred by: ANDRÉS NEWSOME (127 or [phone]) Referred for: Tremor; Weakness Referral Code: 034 [...] right upper limb. Odette Schreiber (127 or [phone])/SMB NERVE CONDUCTIONS Record Rep Normal Normal Distal [...] Carlos Schreiber D.O. at 09/25/2024 9:11:15 AM SVP RESEARCH AND STRATEGIC ANALYSIS us Andrés Newsome M.D. NEUROLOGY ORDERABLES Edited Result - Final EMG documented in this encounter Visit Diagnoses Diagnosis Tremor documented in this encounter Additional Health Concerns Assessment Noted Time PHQ-9 Depression Total Score: 5 09/22/19 25 9:06 AM SVP RESEARCH AND STRATEGIC ANALYSIS documented as of this encounter Care Teams Cnc Machine Setter Relationship Specialty Start Date End Date Andrés Newsome M.D. [address] [place] [address] PCP - General 10/15/21 documented as of this encounter
== END 2024-10-07 16:20 | disposition home or self-care (01) ==
LOC: ED 16:14
PROVIDERS: Emergency Provider Emergency Medicine
DX: M25.562 Pain in left knee (principal)
CPT/HCPCS: 73562; 96372; 99283; 99284; J1885